=== PATIENT | male | born 1960 | race Caucasian/White ===

== ENCOUNTER 2018-05-29 17:00 | Outpatient (RCR) | payer OTHER, BC, SELFPAY | END 2018-06-07 14:32 | disposition home or self-care (01) | LOC: PT 17:00 | PROVIDERS: Visit Provider Orthopaedic Surgery Adult Reconstructive Orthopaedic Surgery | DX: M50.30 Other cervical disc degeneration, unspecified cervical region (principal); M75.111 Incomplete rotator cuff tear or rupture of right shoulder, not specified as traumatic | CPT/HCPCS: 97010; 97012; 97014; 97035; 97110; 97140; 97163; G0283 ==

== ENCOUNTER 2020-04-22 14:03 | Emergency (ER) | payer BC, SELFPAY ==
[2020-04-22 14:42] VITALS: PULSE 79; RESP 18; O2SAT 96; BMI 50.8
[2020-04-22 14:51] VITALS: BP 140/80
--- NOTE | 2020-04-22 15:05 | HMH.EDUTC ---
[facility] [place] Impression: Viral syndrome Disposition: Home, Self-Care Condition on Discharge: Good Instructions: DI for Viral Syndrome, Preventing the Spread of Coronavirus Discharge Instructions Additional Instructions: Drink plenty of fluids. Take tylenol or ibuprofen for pain or fever. Take the medications as directed. Follow up with your regular doctor. GO TO THE ER FOR ANY WORSENING SYMPTOMS FOLLOW THE DIRECTIONS ON THE COVID-19 HAND OUT THAT WE GAVE YOU REGARDING SELF-ISOLATION UNTIL YOU KNOW YOUR COVID-19 RESULTS Prescriptions: Ondansetron [Zofran 4mg ODT] 4 mg PO Q8HP PRN #20 tab.rapdis PRN Reason: Nausea Transmission Status: Received by [id number] Azithromycin [Z-Alistair 250mg Tab*] 250 mg PO UD DOSE PK #6 tab Transmission Status: Received by [id number] Referrals: Crissy Baker [Primary Care Provider] - Forms: Work/School Release Time of Disposition: 15:17 Medical Decision Making - Medical Records Medical records reviewed: No: I reviewed the patient's medical records. - Glenn Inquiry Pt receiving controlled substance: No Vital Signs: 04/22/20 14:42 04/22/20 14:51 04/22/20 15:14 Temperature 99.6 F Temperature Source Oral Pulse Rate Pulse Rate [Radial] 79 Respiratory Rate 18 Blood Pressure Blood Pressure [Right Arm] 140/80 Blood Pressure Mean [Right Arm] 100 Blood Pressure Source Blood Pressure Position 02 Sat by Pulse Oximetry 96 Oxygen Delivery Method Room Air 04/22/20 15:26 Temperature 99.6 F Temperature Source Oral Pulse Rate 79 Pulse Rate [Radial] Respiratory Rate 18 Blood Pressure 140/80 Blood Pressure [Right Arm] Blood Pressure Mean [Right Arm] Blood Pressure Source Automatic Cuff Blood Pressure Position Sitting 02 Sat by Pulse Oximetry Oxygen Delivery Method Room Air - Lab Data Lab results reviewed: Yes: I reviewed the patient's lab results. [facility] [place] - General Stated complaint: fever, sore throat cough head a weakness Time Seen by Provider: 04/22/20 14:55 Mode of Arrival: Ambulatory Source of Information: Patient Limitations: No Limitations Description of Symptoms (Recalled from Triage Doc. by RN): Needs covid testing. States he has a fever, chills, cough, joint pain HEENT Symptoms (Recalled from RN notes): Yes Resp Symptoms (Recalled from RN notes): No Skin Symptoms (Recalled from RN notes): No MS Symptoms (Recalled from RN notes): Yes Functional Status (Recalled from RN notes): wnl - History of Present Illness Provider Complaint: He states that he began having body aches and fever up to 100.6 since this morning. He denies any known exposure to covid-19. He denies any shortness of breath. He does have a dry cough. - Related Data Previous Rx's Medication Instructions Recorded Azithromycin [Z-Alistair 250mg Tab*] 250 mg PO UD DOSE PK #6 tab 04/22/20 Ondansetron [Zofran 4mg ODT] 4 mg PO Q8HP PRN #20 tab.rapdis 04/22/20 Allergies Allergy/AdvReac Type Severity Reaction Status Date / Time No Known Allergies Allergy Unverified 07/11/17 14:37 - Worker's Comp Is this a Worker's Comp case?: No [facility] History - Hepatitis A Screen Drug use history?: No High risk sexual behaviors?: No History of sexually transmitted infection?: No Currently employed?: No Childcare worker?: No Do you have indoor plumbing?: Yes Do you have electricity?: Yes Attestation statement:: This patient has been screened for Hepatitis A risk factors. I have reviewed the patient's past medical history: Yes - Social History Alcohol Intake: never Occupational Status: employed ROS Obtained: Yes All systems reviewed & no additional complaints - Constitutional Constitutional: Reports chills, Denies fever(s), Reports poor appetite, Reports malaise - Eyes Eyes: Denies eye discharge - ENT Ears, Nose, Mouth, and Throat: Reports as per HPI - Cardiovascular Cardiovascular: Denies
[2020-04-22 15:14] VITALS: TEMP 37.6
[2020-04-22 15:26] VITALS: BP 140/80; PULSE 79; RESP 18; TEMP 37.6; O2SAT 96
== END 2020-04-22 15:29 | disposition home or self-care (01) ==
PROVIDERS: Emergency Provider Nurse Practitioner Family; PCP Physician Assistant
DX: U07.1 COVID-19 (principal)
CPT/HCPCS: 99202; U0003

== ENCOUNTER 2020-05-07 01:28 | Inpatient (IN) | payer BC, SELFPAY ==
[2020-05-07] VITALS (15 sets, daily range): BP systolic 115–151; BP diastolic 53–85; PULSE 50–116; RESP 16–19; TEMP 36.4–36.9; O2SAT 90–97; BMI 35.2; BMI 36.9
--- NOTE | 2020-05-07 01:56 | XR_ITS ---
PROCEDURE: XR CHEST 2V CLINICAL HISTORY: Cough with right rib pain COMPARISON: CR CXR CHEST(2 VIEWS-NOT PORTABLE) from 01/06/[address] ANGIO CHEST from 05/07/2020 FINDINGS: The cardiomediastinal silhouette and pulmonary vascularity are within normal limits. There is diffuse bilateral small multifocal areas of infiltrate. No obvious effusion. Bone plate is present in the lower cervical spine. IMPRESSION: Diffuse bilateral multifocal small areas of infiltrate most prominent in the right lung base laterally consistent with pneumonia. Consider atypical pneumonia, viral pneumonia/Covid 19 pneumonia Dictated by: Jimmy Frias MD 05/07/2020 05:26 Jimmy Frias MD in [place] 05/07/2020 05:26
--- NOTE | 2020-05-07 01:56 | CT_ITS ---
PROCEDURE: CT ANGIO CHEST CLINCIAL INDICATION: Right rib pain Chest pain with right rib pain, positive COVID 19 COMPARISON: No exams were available for comparison TECHNIQUE: IV Contrast: 70ML OPTIRAY 350 Axial images obtained with sagittal and coronal reformats. All CT scans at the facility use one or more dose reduction, viz: automated exposure control, ma/kV adjustment per patient size (including targeted exams where dose is matched to indication, i.e. head), or iterative reconstruction technique. FINDINGS: There are multiple focal filling defects in the bilateral pulmonary arteries involving the inter lobar segmental and subsegmental pulmonary artery branches consistent with acute pulmonary embolus. No bowing of the interventricular septum and no significant reflux into the inferior vena cava which does not appear enlarged. No evidence of aortic aneurysm or dissection. There is mild mediastinal adenopathy with nodes in the prevascular and precarinal region the. Mildly prominent right hilar lymph node also present at 1.6 cm. Multifocal peripheral patchy irregular infiltrates and ground-glass opacities are present. These are present in both upper and lower lobes. Atelectatic changes are present in the lung bases. No significant effusion. There is ankylosis of the thoracic spine There is mild gynecomastia. IMPRESSION: 1. Extensive bilateral acute pulmonary emboli with large clot burden. 2. Multifocal pneumonia. Consider Covid 19 pneumonia. Multiple septic emboli also consideration. 3. Mild mediastinal adenopathy possibly reactive. Follow-up recommend Dictated by: Jimmy Frias MD 05/07/2020 06:13 Jimmy Frias MD in [place] 05/07/2020 06:13
[2020-05-07 02:04] LABS: Basophils # 0.1 K/mm3 (0-0.2); Basophils % 0.5 % (0.1-2.0); Eosinophils # 0.2 K/mm3 (0.0-0.4); Eosinophils % 1.7 % (0.1-12.0); Hematocrit 48.2 % (42.0-52.0); Hemoglobin 15.7 g/dL (14.1-18.0); Lymphocytes # 1.6 K/mm3 (0.7-4.5); Lymphocytes % 14.5 % (10-50); Mean Corpuscular HGB Conc 32.5 g/dL (31.8-35.4); Mean Corpuscular Hemoglobin 30.9 pg (27.0-31.2); Mean Platelet Volume 8.1 fl (7.4-10.4); Monocytes # 0.8 K/mm3 (0.1-1.0); Monocytes % 6.9 % (1.7-9.3); Neutrophils # 8.2 K/mm3 (1.8-7.8); Neutrophils % 76.3 % (37.0-80.0); Platelet Count 370 K/mm3 (142-424); Red Blood Count 5.07 M/mm3 (4.60-6.20); White Blood Count 10.8 K/mm3 (4.8-10.8)
[2020-05-07 02:11] LABS: Alanine Aminotransferase 57 U/L (12-78); Albumin Level 3.8 g/dl (3.5-5.0); Alkaline Phosphatase 77 U/L (38-126); Anion Gap 13.9 mEq/L (5-15); Aspartate Amino Transferase 50 U/L (17-59); Bilirubin,Total 0.9 mg/dl (0.2-1.3); Blood Urea Nitrogen 18 mg/dl (9-20); Calcium 8.8 mg/dl (8.4-10.2); Carbon Dioxide 26 mmol/L (22.0-30.0); Chloride 101 mmol/L (98-107); Creatinine Clearance Estimated 87 mL/min (50-200); Estimated Glomerular Filt Rate 56 ml/min (>60); GFR (African American) 68 ML/MIN (>60); Globulin 3.8 g/dL (1.3-3.2); Glucose 118 mg/dl (74-100); Potassium 3.9 mmoL/L (3.5-5.1); Sodium 137 mmol/L (136-145); Total Protein,Serum 7.6 g/dl (6.3-8.2)
[2020-05-07 02:48] LABS: Erythrocyte Sedimentation Rate 20 mm/hr (0-20)
--- NOTE | 2020-05-07 03:20 | PC.NURSE ---
V-rad speaking with Dr Pulliam with CT results
--- NOTE | 2020-05-07 03:32 | HMH.EDGENADL ---
ED Disposition Clinical Impression: Pulmonary embolism associated with COVID-19 Disposition: Admitted As Inpatient Condition on Discharge: Serious Referrals: Crissy Baker [Primary Care Provider] - - Critical Care Critical Care Time: No Attestation: On 05/07/20, the high probability of a clinically significant, sudden or life threatening deterioration of the following system(s) required my full and direct attention, intervention and personal management. The time I documented below is in addition to time spent performing reported procedures but includes the following listed in this critical care notation. Medical Decision Making - Medical Records Medical records reviewed: Yes: I reviewed the patient's medical records. - Glenn Inquiry Pt receiving controlled substance: No Vital Signs: 05/07/20 01:42 05/07/20 03:36 Temperature 98.4 F Temperature Source Oral Pulse Rate [Right] 116 H 81 Respiratory Rate 18 18 Blood Pressure [Right Arm] 125/74 145/84 H Blood Pressure Mean [Right Arm] 91 104 Blood Pressure Source [Right Arm] Automatic Cuff Blood Pressure Position [Right Arm] Sitting 02 Sat by Pulse Oximetry 95 91 L Oxygen Delivery Method Room Air Room Air - Lab Data Lab results reviewed: Yes: I reviewed the patient's lab results. Lab Results 05/07/20 01:55: WBC 10.8, RBC 5.07, Hgb 15.7, Hct 48.2, MCV 95.0 H, MCH 30.9, MCHC 32.5, RDW 13.0, Plt Count 370, MPV 8.1, Neut % (Auto) 76.3, Lymph % (Auto) 14.5, [place] % (Auto) 6.9, Eos % (Auto) 1.7, Baso % (Auto) 0.5, Neut # (Auto) 8.2 H, Lymph # (Auto) 1.6, [place] # (Auto) 0.8, Eos # (Auto) 0.2, Baso # (Auto) 0.1, ESR 20 05/07/20 01:55: Sodium 137, Potassium 3.9, Chloride 101, Carbon Dioxide 26, Anion Gap 13.9, BUN 18, Creatinine 1.30 H, Estimated Creat Clear 87, Estimated GFR 56 L, Est GFR ( Amer) 68, Glucose 118 H, Calcium 8.8, Total Bilirubin 0.9, AST 50, ALT 57, Alkaline Phosphatase 77, C-Reactive Protein 52.0 H, Total Protein 7.6, Albumin 3.8, Globulin 3.8 H, Albumin/Globulin Ratio 1.0 L 05/07/20 01:55: SARS-CoV-2 IgG Ab (Rapid) Positive A, SARS-CoV-2 IgM Ab (Rapid) Positive A Result diagrams: 05/07/20 01:55 05/07/20 01:55 Orders (Tests/Meds): ED MEDICATIONS Generic Name Dose Route Start Last Admin Trade Name Freq PRN Reason Stop Dose Admin Sodium Chloride 1,000 mls @ 999 mls/hr 05/07/20 02:00 05/07/20 02:02 Sod Chlor 0.9% 1000ml Bag IV 05/07/20 03:00 999 mls/hr .Q1H1M CHRIST Administration Sodium Chloride 1,000 mls @ 999 mls/hr 05/07/20 03:45 05/07/20 03:36 Sod Chlor 0.9% 1000ml Bag IV 05/07/20 04:45 999 mls/hr .Q1H1M CHRIST Administration Discontinued Medications Generic Name Dose Route Start Last Admin Trade Name Freq PRN Reason Stop Dose Admin Enoxaparin Sodium 100 mg 05/07/20 03:40 05/07/20 03:45 Enoxaparin 100mg/Ml Syringe SQ 05/07/20 03:41 100 mg ONCE ONE Administration Ioversol 70 ml 05/07/20 03:07 05/07/20 03:08 Ioversol-350 (74%) 100ml Vial IV 05/07/20 03:08 70 ml ONCE ONE Administration Protocol Ketorolac Tromethamine 30 mg 05/07/20 01:59 05/07/20 02:01 Ketorolac 30mg/Ml Vial IV 05/07/20 02:00 30 mg ONCE ONE Administration Methylprednisolone Sodium Succinate 125 mg 05/07/20 02:00 05/07/20 02:01 Methylprednisolone Sod Succ 125mg Vial IV 05/07/20 02:01 125 mg ONCE ONE Administration Morphine Sulfate 4 mg 05/07/20 03:42 05/07/20 03:45 Morphine 4mg/Ml Syringe IV 05/07/20 03:43 4 mg ONCE ONE Administration Ondansetron HCl 4 mg 05/07/20 03:42 05/07/20 03:45 Ondansetron 4mg/2ml Vial IV 05/07/20 03:43 4 mg ONCE ONE Administration Sodium Chloride 40 ml 05/07/20 03:07 05/07/20 03:08 0.9 % Sodium Chloride 50 Ml Vial IV 05/07/20 03:08 40 ml ONCE ONE Administration Sodium Chloride 10 ml 05/07/20 03:07 05/07/20 03:08 Sodium Chloride 0.9% 10ml Syr (Rad Only) IV 05/07/20 03:08 10 ml ONCE ONE Administration ORDERS Catego
--- NOTE | 2020-05-07 03:32 | PC.NURSE ---
Dr Pulliam speaking with Dr Jeffrey with pt results
--- NOTE | 2020-05-07 03:41 | PC.NURSE ---
Lovenox dose confirmed by Melvin in Pharmacy
--- NOTE | 2020-05-07 03:46 | ECG_ITS ---
APPROVED REPORT Exam: Resting ECG HR:92 bpm ECG Measurements Heart Rate 92 AXES IA 144 P 52 QRSd 86 QRS 48 QT 378 T 47 QTc 467 Conclusion Normal sinus rhythm Nonspecific T wave abnormality Prolonged QT Abnormal ECG Electronically signed by : Jv Dowling, 05/10/2020 09:45:20
[2020-05-07 03:48] LABS: Adenovirus,PCR Not Detected (NotDetected); Bordetella Pertussis Not Detected (NotDetected); Chlamydophila Pneumoniae, PCR Not Detected (NotDetected); Coronavirus 229E Not Detected (NotDetected); Coronavirus NL63 Not Detected (NotDetected); Coronavirus OC43 Not Detected (NotDetected); Coronovirus HKU1,PCR Not Detected (NotDetected); Human Metapneumovirus Not Detected (NotDetected); Influenza A, PCR Not Detected (NotDetected); Influenza AH1, 2009 Not Detected (NotDetected); Influenza AH1, PCR Not Detected (NotDetected); Influenza AH3,PCR Not Detected (NotDetected); Influenza B, PCR Not Detected (NotDetected); Mycoplasma Pneumoniae, PCR Not Detected (NotDetected); Parainfluenza 1, PCR Not Detected (NotDetected); Parainfluenza 2, PCR Not Detected (NotDetected); Parainfluenza 3, PCR Not Detected (NotDetected); Parainfluenza 4, PCR Not Detected (NotDetected); Respiratory Syncytial Virus Not Detected (NotDetected); Rhinovirus/Enterovirus Not Detected (NotDetected)
[2020-05-07 03:49] LABS: Coronavirus 19 IgG Antibody Positive (Negative); Coronavirus 19 IgM Antibody Positive (Negative)
[2020-05-07 04:17] LABS: INR 1.13 (0.9-1.1); Prothrombin Time 12.4 seconds (9.4-11.8)
[2020-05-07 04:18] LABS: Activated Partial Thrombo Time 26.4 seconds (23.6-34.0); Troponin I < 0.01 ng/ml (0.00-0.034)
[2020-05-07 05:24] LABS: Coronavirus 19, PCR Detected (NotDetected)
--- NOTE | 2020-05-07 05:55 | PC.NURSE ---
Pt set password to [facility]
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
--- NOTE | 2020-05-07 08:00 | CA_ITS ---
APPROVED REPORT EXAM: Comprehensive 2D, Doppler, and color-flow Echocardiogram Bonding Machine Setter: Hilda Martinez RT(R) Ht: 5 ft 7 in Wt: 235lbs BSA: 2.17 BP: 140/70 mmHg Indications: SOA COVID 2D Dimensions LVOT 1.90 cm (M/F) 1.5-2.5 M-Mode Dimensions RVDd 2.33 cm (0.9-2.6) LA Diam 3.67 cm (1.9-4.0) LVDd 5.63 cm (3.5-5.7) Ao Diam 2.70 cm (2.0-3.7) LVDs 4.31 cm (3.5-5.7) IVSd 0.85 cm (0.6-1.1) PWd 0.76 cm (0.6-1.1) EF (Teich) 46.30% FS 23.40% EDV (Teich) 155.60 mL ESV (Teich) 83.50 mL LV Diastology E Decel Time 160.00 (160-240 msec) E/A Ratio 0.9 MED E' 6.40 (< 7 cm/sec) E'/MED E' Ratio 10.25 (>14) LAT E' 8.40 (<10 cm/sec) E/LAT E' Ratio 7.81 (>14) Mitral Valve MV E Max Marcos. 66.00 (40-130 cm/s) MV A Velocity 74.00 (40-130 cm/s) E/A Ratio 0.89 MV Decel. Time 160.00 (160-240 ms) MV PHT 47.00 ms Left Ventricle Left atrium is qualitatively mildly enlarged, left ventricle is normal size, there is no concentric left ventricular hypertrophy, visually estimated ejection fraction 55% with no regional wall motion abnormality, grade 1 diastolic dysfunction seen without tissue Doppler evidence of raise left atrial pressure. Right Ventricle Right atrium and right ventricle are normal size and contractility. Aortic Valve Aortic valve is grossly normal, there is no aortic stenosis or aortic insufficiency. Mitral Valve Mitral valve is grossly normal, there is trace mitral regurgitation. Tricuspid Valve Tricuspid valve is grossly normal, there is trace tricuspid regurgitation, tricuspid regurgitation jet velocity is inadequate for calculation of the right ventricular systolic pressure. Pulmonic Valve Pulmonic valve is poorly visualized. Great Vessels Aortic root is normal size. Pericardium No significant pericardial effusion noted. Conclusion 1. Mildly enlarged left atrium, normal left ventricular size, visually estimated ejection fraction 55% with no regional wall motion abnormality, grade 1 diastolic dysfunction seen without tissue Doppler evidence of raise left atrial pressure. 2. Trace mitral and tricuspid regurgitation. 3. No significant pericardial effusion noted. Electronically signed by : Slava Cook, 05/07/2020 15:21:24
--- NOTE | 2020-05-07 09:37 | HMH.PHAVTE ---
[facility] Pharmacy VTE Monitoring - Patient Demographics Admission date: 05/07/20 Report Date: 05/07/20 Time: 09:37 Allergies/Adverse Reactions: Patient Allergies acetaminophen [From Tylenol] Allergy (Verified 05/07/20 06:23) Height: 1.7 m Weight: 106.736 kg Patient Problems: Current Active Problems Pulmonary embolism associated with COVID-19 (Acute) - VTE Risk Labs: VTE Related Lab Results Hgb 15.7 g/dL (14.1-18.0) 05/07/20 01:55 Hct 48.2 % (42.0-52.0) 05/07/20 01:55 Plt Count 370 K/mm3 (142-424) 05/07/20 01:55 PT 12.4 seconds (9.4-11.8) H 05/07/20 01:55 INR 1.13 (0.9-1.1) H 05/07/20 01:55 APTT 26.4 seconds (23.6-34.0) 05/07/20 01:55 BUN 18 mg/dl (9-20) 05/07/20 01:55 Creatinine 1.30 mg/dl (0.66-1.25) H 05/07/20 01:55 Estimated Creat Clear 87 mL/min (50-200) 05/07/20 01:55 Was VTE Risk Assessment Performed: Yes VTE Score: 4 VTE Risk Level: Low Risk Clinical Trial Participant: No - Prophylaxis VTE Prophylaxis Ordered?: Yes Types of VTE Prophylaxis: TEDS Knee High
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
--- NOTE | 2020-05-07 14:21 | PC.NURSE ---
Addendum entered by Natalia Delgado RN 05/07/20 18:37: Pt's HR drops into the 40'-50's when asleep, he is asymptomatic on assessment. Original Note: Pt is alert and oriented x4. Lungs were diminished. O2 has remained in the upper 90's on 2L NC. He reports rt sided rib pain with cough. Scheduled aleve administered with relief noted on reassessment. Cough is intermittent and non productive. Pt unable to provide a sputum sample as of yet. He has ambulated to the bathroom w/1 assist and tolerated well. Last BM on 05/06. NSR on telemetry. Consent obtained for remdesivir treatment, it is signed and on pts chart. IV to RAC is patent and infusing NS @ 100mls/hr. No complaints verbalized. Appetite is good. Will continue to monitor.
--- NOTE | 2020-05-07 16:13 | PC.NURSE ---
Per Dr Jeffrey give 100mg lovenox SQ @ [id number]
[2020-05-08] VITALS (7 sets, daily range): BP systolic 132–170; BP diastolic 67–90; PULSE 47–69; RESP 16–18; TEMP 36.4–36.9; O2SAT 93–97; BMI 36.3
--- NOTE | 2020-05-08 05:38 | PC.NURSE ---
shift summary. patient has rested well throughout shift. pulses palpable and regular. heart rate ranged from 40s to 60s. systolic blood pressure remained greater than 100. patient has denied dizziness or vision changes. breath sounds clear throughout all chua, remains on 2 l nc with sats 95-99%. room air sat of 90%. patient has denied nausea, vomiting, diarrhea or pain. urine output clear and yellow.
[2020-05-08 06:28] LABS: Basophils # 0.1 K/mm3 (0-0.2); Basophils % 0.4 % (0.1-2.0); Eosinophils % 0.1 % (0.1-12.0); Hemoglobin 13.5 g/dL (14.1-18.0); Lymphocytes # 1.6 K/mm3 (0.7-4.5); Lymphocytes % 9.7 % (10-50); Mean Corpuscular HGB Conc 30.8 g/dL (31.8-35.4); Mean Corpuscular Hemoglobin 29.6 pg (27.0-31.2); Mean Corpuscular Volume 96.2 fl (80-94); Monocytes # 0.9 K/mm3 (0.1-1.0); Monocytes % 5.7 % (1.7-9.3); Neutrophils # 13.5 K/mm3 (1.8-7.8); Neutrophils % 84.2 % (37.0-80.0); Platelet Count 352 K/mm3 (142-424); Red Blood Count 4.57 M/mm3 (4.60-6.20); Red Cell Distribution Width 13.4 % (11.5-17.5)
[2020-05-08 06:41] LABS: Chloride 106 mmol/L (98-107); Sodium 139 mmol/L (136-145)
[2020-05-08 06:42] LABS: Potassium 4.4 mmoL/L (3.5-5.1)
[2020-05-08 06:44] LABS: Alanine Aminotransferase 39 U/L (12-78); Albumin/Globulin Ratio 0.9 (1.1-1.8); Alkaline Phosphatase 51 U/L (38-126); Anion Gap 11.4 mEq/L (5-15); Aspartate Amino Transferase 36 U/L (17-59); Bilirubin,Total 0.5 mg/dl (0.2-1.3); Blood Urea Nitrogen 21 mg/dl (9-20); Calcium 8.3 mg/dl (8.4-10.2); Carbon Dioxide 26 mmol/L (22.0-30.0); Creatinine Clearance Estimated 117 mL/min (50-200); Estimated Glomerular Filt Rate 76 ml/min (>60); GFR (African American) 92 ML/MIN (>60); Globulin 3.3 g/dL (1.3-3.2); Glucose 119 mg/dl (74-100); Total Protein,Serum 6.3 g/dl (6.3-8.2)
[2020-05-08 06:57] LABS: MANUAL DIFFERENTIAL MANUAL DIFFERENTIAL (MANUAL DIFF)
[2020-05-08 08:36] LABS: Lymphocytes % 16 % (10-50); Monocytes % 3 % (2-9); Neutrophils % 80 % (42-76); Platelet Estimate Normal; RBC Morphology Normal; Total Cells Counted 100
--- NOTE | 2020-05-08 09:00 | HMH.ACPN2 ---
Internal Medicine - PN: Subj *Date: 05/08/20 *Time: 09:00 Interval history: Patient feels better this morning, no fever. He is anxious to go home. Exam Vital signs and Labs for Last 24 Hours: Temp Pulse Resp BP Pulse Ox 97.9 F 63 16 138/78 97 05/08/20 04:00 05/08/20 04:00 05/08/20 04:00 05/08/20 04:00 05/08/20 04:00 Laboratory Results - last 24 hr 05/08/20 05:15: WBC 16.0 H D, RBC 4.57 L, Hgb 13.5 L, Hct 44.0, MCV 96.2 H, MCH 29.6, MCHC 30.8 L, RDW 13.4, Plt Count 352, MPV 9.0, Neut % (Auto) 84.2 H, Lymph % (Auto) 9.7 L, [place] % (Auto) 5.7, Eos % (Auto) 0.1, Baso % (Auto) 0.4, Neut # (Auto) 13.5 H, Lymph # (Auto) 1.6, [place] # (Auto) 0.9, Eos # (Auto) 0.0, Baso # (Auto) 0.1, Total Counted 100, Neutrophils % (Manual) 80 H, Band Neutrophils % 1.0, Lymphocytes % (Manual) 16, Monocytes % (Manual) 3, Platelet Estimate Normal, RBC Morphology Normal 05/08/20 05:15: Sodium 139, Potassium 4.4, Chloride 106, Carbon Dioxide 26, Anion Gap 11.4, BUN 21 H, Creatinine 1.00 D, Estimated Creat Clear 117, Estimated GFR 76, Est GFR ( Amer) 92 D, Glucose 119 H, Calcium 8.3 L, Total Bilirubin 0.5, AST 36 D, ALT 39 D, Alkaline Phosphatase 51, Total Protein 6.3, Albumin 3.0 L D, Globulin 3.3 H, Albumin/Globulin Ratio 0.9 L Vital Signs - 24 hr 05/07/20 12:00 05/07/20 16:00 05/07/20 18:27 Temperature 97.6 F Pulse Rate 60 50 L Pulse Rate [Apical] 68 51 L Pulse Rate [Right] Respiratory Rate 18 19 Blood Pressure [Right Arm] 151/85 H 133/74 02 Sat by Pulse Oximetry 97 97 05/07/20 19:20 05/07/20 20:00 05/08/20 00:00 Temperature 97.8 F 98.0 F Pulse Rate Pulse Rate [Apical] 58 L 47 L Pulse Rate [Right] 58 L Respiratory Rate 18 18 Blood Pressure [Right Arm] 115/53 L 133/72 02 Sat by Pulse Oximetry 90 L 95 97 05/08/20 04:00 Temperature 97.9 F Pulse Rate Pulse Rate [Apical] 63 Pulse Rate [Right] Respiratory Rate 16 Blood Pressure [Right Arm] 138/78 02 Sat by Pulse Oximetry 97 I & O for Last 24 hours: Intake & Output 05/05/20 05/06/20 05/07/20 05/08/20 23:59 23:59 23:59 23:59 Intake Total 3744 / 3744 Output Total 1400 / 1400 Balance 2344 / 2344 Weight 235 lb 5 oz 231 lb 14.821 oz - Constitutional no acute distress - *Routine HEENT Exam Head: Present: normocephalic Eye: Present: EOMI ENT: Present: mucous membranes moist - *Routine Neck Exam Present: supple. Absent: lymphadenopathy - *Routine Respiratory Exam Present: CTA bilaterally (NC O2 in use) - *Routine Cardiovascular Exam Present: RRR - *Routine Abdominal Exam Present: soft, normoactive bowel sounds. Absent: tenderness - *Routine Extremities Exam Absent: cyanosis, clubbing, edema - *Routine Skin Exam Present: warm. Absent: rash - *Routine Neurological Exam Present: alert, oriented X3 Assessment and Plan (1) Pulmonary embolism associated with COVID-19 Status: Acute Category: Medical Code(s): U07.1 - COVID-19; I26.99 - Other pulmonary embolism without acute cor pulmonale (2) COVID-19 Status: Acute Category: Medical Code(s): U07.1 - COVID-19 (3) Viral syndrome Status: Acute Category: Medical Code(s): B34.9 - Viral infection, unspecified - Assessment and plan all Dx Assessment and Plan for all problems:: Pt has improved, attempt to wean supplemental O2 today, saline lock IVF.
--- NOTE | 2020-05-08 12:05 | HMH.PULMPN ---
Internal Medicine - PN: Subj *Date: 05/08/20 *Time: 12:05 Interval history: No acute respiratory events overnight, patient oxygen requirement improved, this morning on room air saturating 96%-97% Exam Vital signs and Labs for Last 24 Hours: Temp Pulse Resp BP Pulse Ox 98.0 F 67 16 140/74 96 05/08/20 08:00 05/08/20 08:00 05/08/20 08:00 05/08/20 08:00 05/08/20 08:00 Laboratory Results - last 24 hr 05/08/20 05:15: WBC 16.0 H D, RBC 4.57 L, Hgb 13.5 L, Hct 44.0, MCV 96.2 H, MCH 29.6, MCHC 30.8 L, RDW 13.4, Plt Count 352, MPV 9.0, Neut % (Auto) 84.2 H, Lymph % (Auto) 9.7 L, [place] % (Auto) 5.7, Eos % (Auto) 0.1, Baso % (Auto) 0.4, Neut # (Auto) 13.5 H, Lymph # (Auto) 1.6, [place] # (Auto) 0.9, Eos # (Auto) 0.0, Baso # (Auto) 0.1, Total Counted 100, Neutrophils % (Manual) 80 H, Band Neutrophils % 1.0, Lymphocytes % (Manual) 16, Monocytes % (Manual) 3, Platelet Estimate Normal, RBC Morphology Normal 05/08/20 05:15: Sodium 139, Potassium 4.4, Chloride 106, Carbon Dioxide 26, Anion Gap 11.4, BUN 21 H, Creatinine 1.00 D, Estimated Creat Clear 117, Estimated GFR 76, Est GFR ( Amer) 92 D, Glucose 119 H, Calcium 8.3 L, Total Bilirubin 0.5, AST 36 D, ALT 39 D, Alkaline Phosphatase 51, Total Protein 6.3, Albumin 3.0 L D, Globulin 3.3 H, Albumin/Globulin Ratio 0.9 L I & O for Last 24 hours: Intake & Output 05/05/20 05/06/20 05/07/20 05/08/20 23:59 23:59 23:59 23:59 Intake Total 3744 / 3744 Output Total 1400 / 1400 700 / 700 Balance 2344 / 2344 -700 / -700 Weight 235 lb 5 oz 231 lb 14.821 oz - *Routine HEENT Exam Head: Present: normocephalic, atraumatic - *Routine Neck Exam Absent: lymphadenopathy, thyromegaly - *Routine Respiratory Exam Absent: accessory muscle use, patient mechanically ventilated Comments: Bilateral coarse breath sounds - *Routine Cardiovascular Exam Present: Normal S1, Normal S2 - *Routine Abdominal Exam Present: soft, normoactive bowel sounds. Absent: tenderness, distended, rebound - *Routine Extremities Exam Absent: cyanosis, clubbing, edema Assessment and Plan (1) Pulmonary embolism associated with COVID-19 Status: Acute Category: Medical Code(s): U07.1 - COVID-19; I26.99 - Other pulmonary embolism without acute cor pulmonale (2) COVID-19 Status: Acute Category: Medical Code(s): U07.1 - COVID-19 (3) Viral syndrome Status: Acute Category: Medical Code(s): B34.9 - Viral infection, unspecified - Assessment and plan all Dx Assessment and Plan for all problems:: #Acute hypoxic respiratory failure: #Bilateral segmental pulmonary embolism - Provoked: #COVID-19 pneumonia: #Community-acquired pneumonia 60-year-old relatively healthy never smoker with recent COVID-19 treatment April 22 presented with 10-day history of worsening cough fevers productive phlegm and pleuritic chest pain and was found to have recurrent COVID-19 infection along with bilateral segmental PE. Troponin within normal limits. Patient hemodynamically stable. PE likely provoked from COVID-19 infection. 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 Age-appropriate screenings up-to-date. Skin cancer 3 years ago that was removed. Respiratory viral PCR negative except for COVID-19 Echocardiogram by social media editor did not reported have any evidence of valvular vegetations. No evidence of right heart strain Plan: -Continue anticoagulation, can switch to apixaban or other DOAC's on discharge -Started on ceftriaxone and azithromycin this morning, continue community-acquired pneumonia for x 5 days -Obtain sputum culture -Continue dexamethasone and remdesavir for COVID-19 pneumonia. -Continue oxygen supplementation if needed to maintain nasal cannula greater than 94% -Follow in the pulmonary clinic, 4 weeks after discharge with full PFTs and 6-minute walk test #Pb yu for involving pulmonary in this patie
--- NOTE | 2020-05-08 16:03 | PC.NURSE ---
PT IS SITTING UP IN BED TALKING ON THE PHONE AT THIS TIME. PT HAS MAINTAINED AN O2 SATURATION 92-95% ON RA T/O THE SHIFT. PT HAS TOLERATED AMBULATING AROUND THE ROOM. APPETITE HAS BEEN FAIR. PT IS BEEN DRINKING WELL AND HAS URINATED SEVERAL TIMES THIS SHIFT. ALERT AND ORIENTED X4. VSS. LUNG SOUNDS DIMINISHED. ABDOMEN SOFT/NON TENDER WITH ACTIVE BOWEL SOUNDS. WILL CONTINUE TO MONITOR.
[2020-05-09] VITALS: BP 160/74; PULSE 63; RESP 20; TEMP 36.8; O2SAT 96
--- NOTE | 2020-05-09 03:43 | PC.NURSE ---
patient has had some issues with anxiety throughout shift. voiced concerns regarding going home, blood thinners, going back to work to soon and end up getting sick again as well as having to quarantine after discharge. allowed patient to voice concerns, assured patient all discharge instructions would be made clear with him prior to discharge. breath sounds have been diminished throughout all chua, sats have remained greater than 94% on r/a. respiratory rate under 20. no respiratory distress noted. pulses palpable and regular with rates in the 50s and 60s. appetite remains poor, bowel sounds active x 4 quadrants. clear yellow urine.
[2020-05-09 04:00] VITALS: BP 156/75; PULSE 49; RESP 16; TEMP 36.8; O2SAT 94
[2020-05-09 05:00] VITALS: BMI 38.0
[2020-05-09 06:28] LABS: Basophils % 0.3 % (0.1-2.0); Eosinophils % 0.2 % (0.1-12.0); Hematocrit 41.2 % (42.0-52.0); Hemoglobin 12.8 g/dL (14.1-18.0); Lymphocytes # 1.9 K/mm3 (0.7-4.5); Lymphocytes % 15.8 % (10-50); Mean Corpuscular Hemoglobin 30.1 pg (27.0-31.2); Mean Corpuscular Volume 97.2 fl (80-94); Mean Platelet Volume 8.8 fl (7.4-10.4); Monocytes # 0.7 K/mm3 (0.1-1.0); Monocytes % 5.9 % (1.7-9.3); Neutrophils # 9.4 K/mm3 (1.8-7.8); Neutrophils % 77.8 % (37.0-80.0); Platelet Count 334 K/mm3 (142-424); Red Blood Count 4.24 M/mm3 (4.60-6.20); White Blood Count 12.1 K/mm3 (4.8-10.8)
[2020-05-09 06:32] LABS: Chloride 106 mmol/L (98-107); Sodium 139 mmol/L (136-145)
[2020-05-09 06:33] LABS: Potassium 4.2 mmoL/L (3.5-5.1)
[2020-05-09 06:35] LABS: Alanine Aminotransferase 42 U/L (12-78); Albumin Level 2.8 g/dl (3.5-5.0); Albumin/Globulin Ratio 0.9 (1.1-1.8); Alkaline Phosphatase 52 U/L (38-126); Anion Gap 7.2 mEq/L (5-15); Aspartate Amino Transferase 37 U/L (17-59); Bilirubin,Total 0.4 mg/dl (0.2-1.3); Blood Urea Nitrogen 22 mg/dl (9-20); Carbon Dioxide 30 mmol/L (22.0-30.0); Creatinine Clearance Estimated 122 mL/min (50-200); Estimated Glomerular Filt Rate 76 ml/min (>60); GFR (African American) 92 ML/MIN (>60); Globulin 3.2 g/dL (1.3-3.2)
[2020-05-09 06:36] LABS: Glucose 98 mg/dl (74-100)
[2020-05-09 07:55] VITALS: BP 142/79; PULSE 60; RESP 18; TEMP 36.6; O2SAT 93
[2020-05-09 09:00] VITALS: PULSE 60; RESP 18; O2SAT 93
--- NOTE | 2020-05-09 09:22 | HMH.ACPN2 ---
Internal Medicine - PN: Subj *Date: 05/09/20 *Time: 09:59 Interval history: Patient feels better today, he has been off of supplemental oxygen for about 24 hours. Exam Vital signs and Labs for Last 24 Hours: Temp Pulse Resp BP Pulse Ox 97.9 F 60 18 142/79 H 93 L 05/09/20 07:55 05/09/20 07:55 05/09/20 07:55 05/09/20 07:55 05/09/20 07:55 Laboratory Results - last 24 hr 05/09/20 05:15: WBC 12.1 H, RBC 4.24 L, Hgb 12.8 L, Hct 41.2 L, MCV 97.2 H, MCH 30.1, MCHC 31.0 L, RDW 13.0, Plt Count 334, MPV 8.8, Neut % (Auto) 77.8, Lymph % (Auto) 15.8, [place] % (Auto) 5.9, Eos % (Auto) 0.2, Baso % (Auto) 0.3, Neut # (Auto) 9.4 H, Lymph # (Auto) 1.9, [place] # (Auto) 0.7, Eos # (Auto) 0.0, Baso # (Auto) 0.0 05/09/20 05:15: Sodium 139, Potassium 4.2, Chloride 106, Carbon Dioxide 30, Anion Gap 7.2, BUN 22 H, Creatinine 1.00, Estimated Creat Clear 122, Estimated GFR 76, Est GFR ( Amer) 92, Glucose 98, Calcium 8.0 L, Total Bilirubin 0.4, AST 37, ALT 42, Alkaline Phosphatase 52, Total Protein 6.0 L, Albumin 2.8 L, Globulin 3.2, Albumin/Globulin Ratio 0.9 L Vital Signs - 24 hr 05/08/20 12:00 05/08/20 16:00 05/08/20 19:59 Temperature 97.8 F 97.6 F 98.4 F Pulse Rate [Apical] Pulse Rate [Right] 66 69 65 Respiratory Rate 18 18 18 Blood Pressure [Right Arm] 141/72 H 132/67 170/90 H 02 Sat by Pulse Oximetry 93 L 95 95 05/08/20 20:00 05/09/20 00:00 05/09/20 04:00 Temperature 98.3 F 98.3 F Pulse Rate [Apical] 54 L Pulse Rate [Right] 63 49 L Respiratory Rate 20 16 Blood Pressure [Right Arm] 160/74 H 156/75 H 02 Sat by Pulse Oximetry 95 96 94 L 05/09/20 07:55 Temperature 97.9 F Pulse Rate [Apical] Pulse Rate [Right] 60 Respiratory Rate 18 Blood Pressure [Right Arm] 142/79 H 02 Sat by Pulse Oximetry 93 L I & O for Last 24 hours: Intake & Output 05/06/20 05/07/20 05/08/20 05/09/20 23:59 23:59 23:59 23:59 Intake Total 3744 / 3744 480 / 480 240 / 240 Output Total 1400 / 1400 900 / 900 250 / 250 Balance 2344 / 2344 -420 / -420 -10 / -10 Weight 235 lb 5 oz 231 lb 14.821 oz 242 lb - Constitutional no acute distress - *Routine HEENT Exam Head: Present: normocephalic Eye: Present: EOMI ENT: Present: mucous membranes moist - *Routine Neck Exam Present: supple. Absent: lymphadenopathy - *Routine Respiratory Exam Present: CTA bilaterally - *Routine Cardiovascular Exam Present: RRR - *Routine Abdominal Exam Present: soft, normoactive bowel sounds. Absent: tenderness - *Routine Extremities Exam Absent: cyanosis, clubbing, edema - *Routine Skin Exam Present: warm. Absent: rash - *Routine Neurological Exam Present: alert, oriented X3 Assessment and Plan (1) Pulmonary embolism associated with COVID-19 Status: Acute Category: Medical Code(s): U07.1 - COVID-19; I26.99 - Other pulmonary embolism without acute cor pulmonale (2) COVID-19 Status: Acute Category: Medical Code(s): U07.1 - COVID-19 (3) Viral syndrome Status: Acute Category: Medical Code(s): B34.9 - Viral infection, unspecified (4) CAP (community acquired pneumonia) Status: Acute Category: Medical Code(s): J18.9 - Pneumonia, unspecified organism - Assessment and plan all Dx Assessment and Plan for all problems:: OK for discharge home today, plan office f/u in 2 weeks.
--- NOTE | 2020-05-14 05:28 | HMH.DCSUM ---
General - General Admission date:: 05/07/20 Discharge date: 05/09/20 HPI HPI: Mr. Cleveland is an otherwise healthy 60yo male who sees Dr. Baker in [place] for primary care. He was diagnosed with COVID-19 on 04/22/2020 and relates unremarkable progression through the associated upper respiratory symptoms over the past two weeks including fever, cough, sore throat, shortness of breath, fatigue, generalized achiness. His symptoms were beginning to resolve although he was still quarantined. He described a coughing episode which resulted in severe right lateral rib pain and he subsequently presented to [facility] ED for further evaluation. Upon arrival, his CBC was WNL. Creatinine was mildly elevated at 1.3 with GFR of 56. His EKG showed sinus tachycardia with non-specific ST-T wave changes. CXR showed diffuse bilateral multifocal small areas of infiltrate most prominent in the right lung base laterally consistent with pneumonia, consider atypical/viral/Covid 19 pneumonia. Rapid SARS-COV-2 IgM was positive as was SARS-COV-2 PCR. CTA of the chest demonstrated bilateral pulmonary emboli with COVID changes. He was admitted to hospital service with pulmonology consult ordered. The following morning he was resting in bed. He had no complaint other than continued right lateral rib discomfort. He had an occasional non-productive cough. Hospital Course Hospital Course: Patient was given fluid boluses in the emergency room and started on Lovenox for PE's. He was seen by fibre cement moulder, Dr. Navarro, who initiated treatment for community-acquired pneumonia with Rocephin and Zithromax. Dexamethasone and remdesivir were also initiated for the Covid?19 pneumonia along with oxygen supplementation. Patient did begin to feel better. White blood cell count on 05/08 was 16,000. See data for other lab results. Patient at this point was anxious to go home. Plan was to wean him from his supplemental oxygen. On 05/09 patient had no acute respiratory events and tolerated room air for 24 hours. O2 saturations were 96 to 97%. On this date he was felt stable to be discharged home. On 05/09/2020 patient was discharged home in stable and satisfactory condition. He was to follow in the pulmonary clinic in 4 weeks after discharge with full PFT's and a 6 minute walk test and with Dr. Jeffrey on 05/22/2020 at 10 AM. Medications as per medication reconciliation sheet and to include continuing dexamethasone, Zithromax, cefdinir, ascorbic acid, vitamin D3 and Xarelto as well as zinc. Objective Vital signs: Temp Pulse Resp BP Pulse Ox 97.9 F 60 18 142/79 H 93 L 05/09/20 07:55 05/09/20 09:00 05/09/20 09:00 05/09/20 07:55 05/09/20 09:00 Narrative: Exam Vital signs and Labs for Last 24 Hours: Temp Pulse Resp BP Pulse Ox 97.9 F 60 18 142/79 H 93 L 05/09/20 07:55 05/09/20 07:55 05/09/20 07:55 05/09/20 07:55 05/09/20 07:55 Laboratory Results - last 24 hr 05/09/20 05:15: WBC 12.1 H, RBC 4.24 L, Hgb 12.8 L, Hct 41.2 L, MCV 97.2 H, MCH 30.1, MCHC 31.0 L, RDW 13.0, Plt Count 334, MPV 8.8, Neut % (Auto) 77.8, Lymph % (Auto) 15.8, [place] % (Auto) 5.9, Eos % (Auto) 0.2, Baso % (Auto) 0.3, Neut # (Auto) 9.4 H, Lymph # (Auto) 1.9, [place] # (Auto) 0.7, Eos # (Auto) 0.0, Baso # (Auto) 0.0 05/09/20 05:15: Sodium 139, Potassium 4.2, Chloride 106, Carbon Dioxide 30, Anion Gap 7.2, BUN 22 H, Creatinine 1.00, Estimated Creat Clear 122, Estimated GFR 76, Est GFR ( Amer) 92, Glucose 98, Calcium 8.0 L, Total Bilirubin 0.4, AST 37, ALT 42, Alkaline Phosphatase 52, Total Protein 6.0 L, Albumin 2.8 L, Globulin 3.2, Albumin/Globulin Ratio 0.9 L Vital Signs - 24 hr 05/08/20 12:00 05/08/20 16:00 05/08/20 19:59 Temperature 97.8 F 97.6 F 98.4 F Pulse Rate [Apical] Pulse Rate [Right] 66 69 65 Respiratory Rate 18 18 18 Blood Pressure [Right Arm] 141/72 H 132/67 170/90 H 02 Sat by Pulse Oximetry 93 L 95 95 05/08/20 20:00 05/09/20 00:00 05/09/20
== END 2020-05-09 11:45 | disposition home or self-care (01) | DRG 177 ==
LOC: ER 03:57 → ICU 06:03
PROVIDERS: Admitting Provider Family Medicine; Emergency Provider Emergency Medicine; PCP Physician Assistant; Visit Provider Family Medicine
DX: U07.1 COVID-19 (principal); I26.99 Other pulmonary embolism without acute cor pulmonale; J12.89 Other viral pneumonia; J96.01 Acute respiratory failure with hypoxia
CPT/HCPCS: 71046; 71275; 80053; 84484; 85007; 85025; 85610; 85651; 85730; 86140; 86328; 87581; 87633; 87798; 90686; 90732; 93005; 93306; 94761; 96365; 96366; 96372; 96375; 99284; J0456; J2405; Q9967; U0003

== ENCOUNTER → 2020-06-08 10:52 | Outpatient (CLI) | payer BC, SELFPAY ==
--- NOTE | 2020-06-08 10:57 | XR_ITS ---
PROCEDURE: XR CHEST 2V CLINICAL HISTORY: Pneumonia COMPARISON: CR CXR CHEST(2 VIEWS-NOT PORTABLE) from 01/06/2016 CR XR CHEST 2V from 05/07/[address] ANGIO CHEST from 05/07/2020 FINDINGS: The cardiomediastinal silhouette and pulmonary vascularity are within normal limits. There has been marked interval clearing of the diffuse pneumonia. There is some minimal residual infiltrate in the left perihilar region. No effusions. Degenerative changes thoracic spine IMPRESSION: Marked improvement in the diffuse bilateral pneumonia with some minimal residual infiltrate in the left perihilar region Dictated by: Jimmy Frias MD 06/08/2020 16:23 Jimmy Frias MD in [place] 06/08/2020 16:23
[2020-06-08 11:59] LABS: D-Dimer 0.58 ug/mL (0.15-8.0)
== END ==
PROVIDERS: PCP Physician Assistant; Visit Provider Internal Medicine Pulmonary Disease
DX: J44.9 Chronic obstructive pulmonary disease, unspecified (principal)
CPT/HCPCS: 36415; 71046; 85378

== ENCOUNTER → 2020-07-27 14:04 | Outpatient (CLI) | payer BC, SELFPAY ==
--- NOTE | 2020-07-27 15:20 | PC.NURSE ---
Completed PFT on Pt without incident. Albuterol 0.083% given per written protocol, Pt tolerated well.
== END ==
PROVIDERS: PCP Physician Assistant; Visit Provider Internal Medicine Pulmonary Disease
DX: R06.09 Other forms of dyspnea (principal); Z86.16 Personal history of COVID-19
CPT/HCPCS: 94060; 94726; 94729

== ENCOUNTER → 2020-09-07 09:50 | Outpatient (CLI) | payer BC, SELFPAY | PROVIDERS: PCP Family Medicine; Visit Provider Family Medicine | DX: R06.09 Other forms of dyspnea (principal) | CPT/HCPCS: 94618 ==

== ENCOUNTER 2020-12-03 12:35 | Outpatient (RCR) | payer BC, SELFPAY | END 2021-01-29 13:09 | disposition home or self-care (01) | LOC: PT 12:35 | PROVIDERS: Visit Provider Internal Medicine Pulmonary Disease | DX: R06.02 Shortness of breath (principal); Z86.16 Personal history of COVID-19 | CPT/HCPCS: 93798; G0237; G0238; G0239 ==

== ENCOUNTER → 2020-12-29 12:33 | Outpatient (CLI) | payer BC, SELFPAY ==
--- NOTE | 2020-12-29 12:36 | NM_ITS ---
PROCEDURE: NM PUL VENT AND PERFUSE CLINICAL INDICATION: eevated Dimer Shortness of breath, history of Covid19, elevated D-dimer COMPARISON: CR XR CHEST 2V from 12/29/2020 FINDINGS: Dose: 35.5 mCi technetium DTPA inhaled 8.4 mCi technetium MAA IV. No segmental perfusion or ventilation defects are evident. No mismatching defects. There is normal distribution of radiopharmaceutical in both the ventilation and perfusion images. IMPRESSION: Negative, no evidence pulmonary embolus. Dictated by: Jimmy Frias MD 12/29/2020 14:35 Jimmy Frias MD in [place] 12/29/2020 14:35
--- NOTE | 2020-12-29 13:29 | XR_ITS ---
PROCEDURE: XR CHEST 2V CLINICAL HISTORY: SOA, VQ SCAN TODAY Shortness of air, history of Covid19 COMPARISON: CR CXR CHEST(2 VIEWS-NOT PORTABLE) from 01/06/2016 CR XR CHEST 2V from 05/07/[address] ANGIO CHEST from 05/07/2020 CR XR CHEST 2V from 06/08/2020 FINDINGS: The cardiomediastinal silhouette and pulmonary vascularity are within normal limits. The lungs are clear without infiltrates, suspicious nodules, or pleural effusions. There is ankylosis of the thoracic spine. Bone plate is present in the lower cervical spine. IMPRESSION: No acute findings. Dictated by: Jimmy Frias MD 12/29/2020 14:36 Jimmy Frias MD in [place] 12/29/2020 14:36
--- NOTE | 2020-12-29 13:39 | HMH.ITSHM ---
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 []VITAMINS
== END ==
PROVIDERS: PCP Family Medicine; Visit Provider Internal Medicine Pulmonary Disease
DX: R06.00 Dyspnea, unspecified (principal); R79.89 Other specified abnormal findings of blood chemistry; Z86.16 Personal history of COVID-19
CPT/HCPCS: 71046; 78582; A9540; A9567

== ENCOUNTER → 2021-07-23 09:36 | Outpatient (CLI) | payer BC, SELFPAY ==
[2021-07-23 13:52] LABS: Alanine Aminotransferase 78 U/L (12-78); Albumin Level 4.2 g/dl (3.5-5.0); Albumin/Globulin Ratio 1.3 (1.1-1.8); Alkaline Phosphatase 82 U/L (38-126); Anion Gap 11.6 mEq/L (5-15); Aspartate Amino Transferase 77 U/L (17-59); Bilirubin,Total 0.6 mg/dl (0.2-1.3); Blood Urea Nitrogen 21 mg/dl (9-20); Calcium 9.2 mg/dl (8.4-10.2); Carbon Dioxide 30 mmol/L (22.0-30.0); Chloride 101 mmol/L (98-107); Estimated Glomerular Filt Rate 62 ml/min (>60); GFR (African American) 74 ML/MIN (>60); Globulin 3.3 g/dL (1.3-3.2); Glucose 150 mg/dl (74-100); Magnesium 1.6 mg/dl (1.6-2.3); Phosphorous 3.5 mg/dl (2.5-4.5); Potassium 4.6 mmoL/L (3.5-5.1); Sodium 138 mmol/L (136-145); Total Protein,Serum 7.5 g/dl (6.3-8.2)
[2021-07-23 14:03] LABS: Basophils # 0.1 K/mm3 (0-0.2); Basophils % 1.1 % (0.1-2.0); Eosinophils # 0.1 K/mm3 (0.0-0.4); Eosinophils % 2.1 % (0.1-12.0); Hematocrit 50.5 % (42.0-52.0); Hemoglobin 16.1 g/dL (14.1-18.0); Lymphocytes # 2.2 K/mm3 (0.7-4.5); Mean Corpuscular HGB Conc 31.9 g/dL (31.8-35.4); Mean Corpuscular Hemoglobin 31.5 pg (27.0-31.2); Mean Corpuscular Volume 98.8 fl (80-94); Mean Platelet Volume 9.2 fl (7.4-10.4); Monocytes # 0.4 K/mm3 (0.1-1.0); Neutrophils # 3.1 K/mm3 (1.8-7.8); Neutrophils % 52.9 % (37.0-80.0); Platelet Count 295 K/mm3 (142-424); Red Blood Count 5.11 M/mm3 (4.60-6.20); Red Cell Distribution Width 13.6 % (11.5-17.5); White Blood Count 5.9 K/mm3 (4.8-10.8)
[2021-07-23 14:08] LABS: 25-OH Vitamin D, Total 42.2 ng/mL (30-100)
[2021-07-23 14:23] LABS: Thyroid Stimulating Hormone 3.42 uIU/mL (0.465-4.68)
[2021-07-23 14:29] LABS: Erythrocyte Sedimentation Rate 15 mm/hr (0-20)
[2021-07-23 14:41] LABS: Vitamin B12 444 pg/mL (239-931)
== END ==
PROVIDERS: Visit Provider Family Medicine
DX: R53.82 Chronic fatigue, unspecified (principal); E66.9 Obesity, unspecified; Z68.41 Body mass index [BMI] 40.0-44.9, adult
CPT/HCPCS: 36415; 80053; 82306; 82607; 83735; 84100; 84443; 85025; 85651

== ENCOUNTER → 2021-07-26 09:49 | Outpatient (CLI) | payer BC, SELFPAY ==
[2021-07-26 09:53] LABS: Microscopic, Urine URINE MICROSCOPIC (MICROSCOPIC)
[2021-07-26 14:37] LABS: Appearance,Urine TURBID (Clear); Bilirubin,Urine Negative (Negative); Blood, Urine Negative (Negative); Color,Urine YELLOW (Yellow); Glucose,Urine (UA) Negative (Negative); Ketones,Urine Negative (Negative); Leukocyte Esterase,Urine Negative (Negative); Nitrate,Urine Negative (Negative); PH,Urine 5.5 (5.0-8.5); Protein,Urine Negative (Negative); Specific Gravity, Urine 1.025 (1.005-1.030); Urobilinogen,Urine 0.2 EU/dl (0.2)
[2021-07-26 14:46] LABS: Bacteria,Urine 4+ /lpf
== END ==
PROVIDERS: Visit Provider Family Medicine
DX: R53.82 Chronic fatigue, unspecified (principal)
CPT/HCPCS: 81001; 87086

== ENCOUNTER → 2022-05-04 11:30 | Outpatient (CLI) | payer BC, SELFPAY ==
[2022-05-04 20:05] LABS: Anion Gap 14.3 mEq/L (5-15); Blood Urea Nitrogen 17 mg/dl (9-20); Calcium 9.2 mg/dl (8.4-10.2); Carbon Dioxide 26 mmol/L (22.0-30.0); Chloride 101 mmol/L (98-107); Estimated Glomerular Filt Rate 86 ml/min (>60); GFR (African American) 103 ML/MIN (>60); Glucose 199 mg/dl (74-100); Potassium 4.3 mmoL/L (3.5-5.1); Sodium 137 mmol/L (136-145)
[2022-05-04 21:48] LABS: Hemoglobin A1C 11.5 % (4.0-6.0)
== END ==
PROVIDERS: PCP Family Medicine; Visit Provider Family Medicine
DX: Z00.00 Encounter for general adult medical examination without abnormal findings (principal); R73.9 Hyperglycemia, unspecified
CPT/HCPCS: 80048; 83036

== ENCOUNTER → 2022-08-25 07:53 | Outpatient (CLI) | payer BC, SELFPAY ==
[2022-08-25 20:12] LABS: Hemoglobin A1C 9.9 % (4.0-6.0)
== END ==
PROVIDERS: PCP Family Medicine; Visit Provider Family Medicine
DX: E11.9 Type 2 diabetes mellitus without complications (principal); Z79.84 Long term (current) use of oral hypoglycemic drugs
CPT/HCPCS: 83036

== ENCOUNTER → 2022-10-20 06:58 | Outpatient (CLI) | payer BC, SELFPAY ==
[2022-10-20 18:25] LABS: Chloride 102 mmol/L (98-107); Potassium 4.9 mmoL/L (3.5-5.1); Sodium 137 mmol/L (136-145)
[2022-10-20 18:28] LABS: Anion Gap 13.9 mEq/L (5-15); Blood Urea Nitrogen 21 mg/dl (9-20); Carbon Dioxide 26 mmol/L (22.0-30.0); Estimated Glomerular Filt Rate 68 ml/min (>60); GFR (African American) 82 ML/MIN (>60)
[2022-10-20 18:29] LABS: Calcium 9.2 mg/dl (8.4-10.2); Glucose 113 mg/dl (74-100)
[2022-10-20 18:31] LABS: Hemoglobin A1C 7.7 % (4.0-6.0)
== END ==
PROVIDERS: PCP Family Medicine; Visit Provider Family Medicine
DX: E11.9 Type 2 diabetes mellitus without complications (principal); Z79.84 Long term (current) use of oral hypoglycemic drugs
CPT/HCPCS: 80048; 83036

== ENCOUNTER → 2023-01-05 16:39 | Outpatient (CLI) | payer BC, SELFPAY ==
[2023-01-05 16:34] LABS: Creatinine,Urine Random 195 mg/dL (Not Estab.)
[2023-01-05 16:43] LABS: Hemoglobin A1C 6.7 % (4.0-6.0)
== END ==
PROVIDERS: Visit Provider Family Medicine
DX: E11.9 Type 2 diabetes mellitus without complications (principal); Z79.84 Long term (current) use of oral hypoglycemic drugs
CPT/HCPCS: 82043; 82570; 83036

== ENCOUNTER → 2023-05-11 09:16 | Outpatient (CLI) | payer BC, SELFPAY ==
[2023-05-11 16:51] LABS: Basophils % 0.7 % (0.1-2.0); Eosinophils # 0.1 K/mm3 (0.0-0.4); Eosinophils % 1.6 % (0.1-12.0); Hematocrit 46.4 % (42.0-52.0); Hemoglobin 15.8 g/dL (14.1-18.0); Lymphocytes # 2.5 K/mm3 (0.7-4.5); Lymphocytes % 39.2 % (10-50); Mean Corpuscular Hemoglobin 33.5 pg (27.0-31.2); Mean Corpuscular Volume 98.4 fl (80-94); Mean Platelet Volume 9.6 fl (7.4-10.4); Monocytes # 0.4 K/mm3 (0.1-1.0); Monocytes % 6.7 % (1.7-9.3); Neutrophils # 3.4 K/mm3 (1.8-7.8); Neutrophils % 51.8 % (37.0-80.0); Platelet Count 251 K/mm3 (142-424); Red Blood Count 4.72 M/mm3 (4.60-6.20); White Blood Count 6.5 K/mm3 (4.8-10.8)
[2023-05-11 17:12] LABS: Chloride 100 mmol/L (98-107); Sodium 139 mmol/L (136-145)
[2023-05-11 17:15] LABS: Alanine Aminotransferase 40 U/L (12-78); Albumin Level 4.5 g/dl (3.5-5.0); Albumin/Globulin Ratio 1.3 (1.1-1.8); Alkaline Phosphatase 79 U/L (38-126); Aspartate Amino Transferase 61 U/L (17-59); Bilirubin,Total 1.1 mg/dl (0.2-1.3); Blood Urea Nitrogen 21 mg/dl (9-20); Calcium 9.6 mg/dl (8.4-10.2); Carbon Dioxide 32 mmol/L (22.0-30.0); Cholesterol 224 mg/dl (140-200); Estimated Glomerular Filt Rate 61 ml/min (>60); GFR (African American) 74 ML/MIN (>60); Globulin 3.4 g/dL (1.3-3.2); Glucose 128 mg/dl (74-100); Total Protein,Serum 7.9 g/dl (6.3-8.2); Triglycerides 150 mg/dl (30-150); VLDL Cholesterol 30 mg/dL (0-40)
[2023-05-11 17:16] LABS: Chol/HDL Ratio 6.6 (1-3.5); HDL Cholesterol 34 mg/dl (40-60)
[2023-05-11 17:27] LABS: Direct LDL Cholesterol 134.79 mg/dL (100-129)
[2023-05-11 17:46] LABS: Thyroid Stimulating Hormone 2.43 uIU/mL (0.465-4.68)
[2023-05-11 17:51] LABS: Hemoglobin A1C 6.5 % (4.0-6.0)
== END ==
PROVIDERS: PCP Nurse Practitioner Family; Visit Provider Nurse Practitioner Family
DX: E11.9 Type 2 diabetes mellitus without complications (principal); Z79.84 Long term (current) use of oral hypoglycemic drugs
CPT/HCPCS: 80053; 80061; 83036; 84443; 85025

== ENCOUNTER 2023-08-08 17:49 | Outpatient (CLI) | payer BC, SELFPAY ==
[2023-08-08 17:16] LABS: Hemoglobin A1C 6.8 % (4.0-6.0)
== END 2023-08-08 23:59 ==
LOC: LAB.DROPOF 17:49
PROVIDERS: PCP Family Medicine; Visit Provider Family Medicine
DX: E11.9 Type 2 diabetes mellitus without complications (principal); Z79.85 Long-term (current) use of injectable non-insulin antidiabetic drugs
CPT/HCPCS: 83036

== ENCOUNTER 2023-10-26 21:22 | Outpatient (CLI) | payer BC, SELFPAY ==
[2023-10-26 16:53] LABS: Alanine Aminotransferase 30 U/L (12-78); Albumin Level 4.4 g/dl (3.5-5.0); Albumin/Globulin Ratio 1.3 (1.1-1.8); Alkaline Phosphatase 79 U/L (38-126); Anion Gap 9.9 mEq/L (5-15); Aspartate Amino Transferase 37 U/L (17-59); Bilirubin,Total 0.9 mg/dl (0.2-1.3); Blood Urea Nitrogen 14 mg/dl (9-20); Calcium 10.3 mg/dl (8.4-10.2); Carbon Dioxide 32 mmol/L (22.0-30.0); Chloride 103 mmol/L (98-107); Estimated Glomerular Filt Rate 61 ml/min (>60); GFR (African American) 74 ML/MIN (>60); Globulin 3.3 g/dL (1.3-3.2); Glucose 116 mg/dl (74-100); Potassium 4.9 mmoL/L (3.5-5.1); Sodium 140 mmol/L (136-145); Total Protein,Serum 7.7 g/dl (6.3-8.2)
[2023-10-26 17:27] LABS: Hemoglobin A1C 7.1 % (4.0-6.0)
[2023-10-27 12:41] LABS: Chol/HDL Ratio 3.5 (1-3.5); Cholesterol 138 mg/dl (140-200); HDL Cholesterol 40 mg/dl (40-60); Triglycerides 113 mg/dl (30-150); VLDL Cholesterol 23 mg/dL (0-40)
[2023-10-27 12:52] LABS: Direct LDL Cholesterol 79.45 mg/dL (100-129)
== END 2023-10-26 23:59 ==
LOC: LAB.DROPOF 21:23
PROVIDERS: PCP Family Medicine; Visit Provider Family Medicine
DX: E11.9 Type 2 diabetes mellitus without complications (principal); Z79.85 Long-term (current) use of injectable non-insulin antidiabetic drugs
CPT/HCPCS: 80053; 80061; 83036

== ENCOUNTER 2024-02-13 13:26 | Outpatient (CLI) | payer BC, SELFPAY ==
[2024-02-13 17:45] LABS: Hemoglobin A1C 6.2 % (4.0-6.0)
== END 2024-02-13 23:59 | disposition home or self-care (01) ==
LOC: LAB.DROPOF 02-14 13:26
PROVIDERS: PCP Family Medicine; Visit Provider Family Medicine
DX: E11.9 Type 2 diabetes mellitus without complications (principal); Z79.85 Long-term (current) use of injectable non-insulin antidiabetic drugs
CPT/HCPCS: 83036

== ENCOUNTER 2024-05-17 09:30 | Outpatient (CLI) | payer BC, SELFPAY ==
[2024-05-17 16:33] LABS: Basophils # 0.1 K/mm3 (0-0.2); Basophils % 1.2 % (0.1-2.0); Eosinophils # 0.1 K/mm3 (0.0-0.4); Eosinophils % 1.3 % (0.1-12.0); Hematocrit 50.2 % (42.0-52.0); Hemoglobin 16.7 g/dL (14.1-18.0); Lymphocytes # 2.8 K/mm3 (0.7-4.5); Lymphocytes % 38.1 % (10-50); Mean Corpuscular HGB Conc 33.4 g/dL (31.8-35.4); Mean Corpuscular Hemoglobin 31.7 pg (27.0-31.2); Mean Corpuscular Volume 95.1 fl (80-94); Mean Platelet Volume 9.1 fl (7.4-10.4); Monocytes # 0.4 K/mm3 (0.1-1.0); Monocytes % 5.8 % (1.7-9.3); Neutrophils # 3.9 K/mm3 (1.8-7.8); Neutrophils % 53.7 % (37.0-80.0); Platelet Count 243 K/mm3 (142-424); Red Blood Count 5.28 M/mm3 (4.60-6.20); Red Cell Distribution Width 13.6 % (11.5-17.5); White Blood Count 7.3 K/mm3 (4.8-10.8)
[2024-05-17 16:51] LABS: Alanine Aminotransferase 35 U/L (12-78); Albumin/Globulin Ratio 1.4 (1.1-1.8); Alkaline Phosphatase 78 U/L (38-126); Aspartate Amino Transferase 40 U/L (17-59); Bilirubin,Total 1.1 mg/dl (0.2-1.3); Blood Urea Nitrogen 16 mg/dl (9-20); Calcium 9.6 mg/dl (8.4-10.2); Carbon Dioxide 30 mmol/L (22.0-30.0); Chloride 103 mmol/L (98-107); Chol/HDL Ratio 3.1 (1-3.5); Cholesterol 140 mg/dl (140-200); Estimated Glomerular Filt Rate 61 ml/min (>60); GFR (African American) 74 ML/MIN (>60); Globulin 3.6 g/dL (1.3-3.2); Glucose 95 mg/dl (74-100); HDL Cholesterol 45 mg/dl (40-60); Sodium 142 mmol/L (136-145); Total Protein,Serum 8.6 g/dl (6.3-8.2); Triglycerides 119 mg/dl (30-150); VLDL Cholesterol 24 mg/dL (0-40)
[2024-05-17 17:09] LABS: Hemoglobin A1C 6.2 % (4.0-6.0)
[2024-05-17 17:21] LABS: Thyroid Stimulating Hormone 2.69 uIU/mL (0.465-4.68)
== END 2024-05-17 23:59 | disposition home or self-care (01) ==
LOC: LAB.DROPOF 05-20 09:31
PROVIDERS: PCP Family Medicine; Visit Provider Family Medicine
DX: E11.9 Type 2 diabetes mellitus without complications (principal); Z79.85 Long-term (current) use of injectable non-insulin antidiabetic drugs
CPT/HCPCS: 80050; 80053; 80061; 83036; 84443; 85025

== ENCOUNTER 2025-07-14 13:00 | Outpatient (CLI) | payer BC, SELFPAY ==
[2025-07-14 19:31] LABS: Hematocrit 42.4 % (42.0-52.0); Hemoglobin 13.9 g/dL (14.1-18.0); Immature Granulocytes % 0.2 %; Mean Corpuscular HGB Conc 32.8 g/dL (31.8-35.4); Mean Corpuscular Hemoglobin 30.8 pg (27.0-31.2); Mean Corpuscular Volume 94.0 fl (80-94); Nucleated Red Blood Cells % 0 %; Platelet Count 260 K/mm3 (142-424); Red Blood Count 4.51 M/mm3 (4.60-6.20); Red Cell Distribution Width-SD 44.2 fL; White Blood Count 6.3 K/mm3 (4.8-10.8)
[2025-07-14 20:01] LABS: Albumin Level 4.8 g/dl (3.5-5.0); Chloride 102 mmol/L (98-107); Potassium 4.6 mmoL/L (3.5-5.1); Sodium 141 mmol/L (136-145)
[2025-07-14 20:03] LABS: Alanine Aminotransferase 31 U/L (12-78); Aspartate Amino Transferase 38 U/L (17-59); Blood Urea Nitrogen 17 mg/dl (9-20); Creatinine,Serum 1.40 mg/dl (0.66-1.25); Estimated Glomerular Filt Rate 51 ml/min (>60); GFR (African American) 62 ML/MIN (>60)
[2025-07-14 20:04] LABS: Albumin/Globulin Ratio 1.7 (1.1-1.8); Alkaline Phosphatase 69 U/L (38-126); Anion Gap 15.6 mEq/L (5-15); Bilirubin,Total 0.8 mg/dl (0.2-1.3); Calcium 9.5 mg/dl (8.4-10.2); Carbon Dioxide 28 mmol/L (22.0-30.0); Cholesterol 114 mg/dl (140-200); Globulin 2.9 g/dL (1.3-3.2); Glucose 95 mg/dl (74-100); HDL Cholesterol 41 mg/dl (40-60); Total Protein,Serum 7.7 g/dl (6.3-8.2); Triglycerides 103 mg/dl (30-150)
[2025-07-14 20:52] LABS: Hepatitis C Ab Qual. W/ RFX NEGATIVE (Negative)
--- OUTSIDE RECORDS SUMMARY | 2025-07-15 12:07 | XMS_ITS | Clinical Summary ---
[facility] Address [address] [place] [address] Care Team Providers Care Conference Planner Name Role Phone Provider, No Known Primary Care Provider Unavail able Allergies No known active allergies Medications No known medications Active Problems No known active problems Family History Medical History Relation Name Comments Cancer Father Cancer Mother Relation Name Status Comments Father Mother Social History Tobacco Use Types Packs/Day Years Used Date Smoking Tobacco: Never Abuse Screen Answer Date Recorded Unsafe at Home or Work/School Not on file Feels Threatened by Someone? Not on file 03/2023 Does Anyone Keep You from Co ntacting Others or Doint Things Outside the Home? Not on file 05/01/2023 Physical Sign of Abuse Present Not on file 1 Housing Stability Answer Date Recorded Current Living Arrangements Not on file 03/2023 Potentially Unsafe Housing Conditions Not on anum e 05/01/2023 Family and Community Support Answer Mariano e Recorded Help with Day-to-Day Activities Not on file 05/01/2023 Lonely or Isolated Not on file 05/01/2023 Employment Answer Date Recorded Do you want help finding or keeping work or a katie b? Not on file 05/01/2023 Disabilities Answer Date Recorded Concentrating, Remembering, or Making Decisions Difficulty Not on file 05/01/2023 Doing Errands Independently Difficulty Not on fi le 05/01/2023 Education Answer Date Recorded Help with school or training? Not on file Preferred Language Not on file 05/01/2023 Sex and Gender Information Value Date Recorded Sex Assigned at Not on file Legal Sex Male 1:11 PM EDT Gender Identity Not on file Sexual Orientation Not on file Last Filed Vital Signs Vital Sign Reading Time Taken Comments Blood Pressure 122/92 07/22/2019 2:45 PM EST Pulse 93 07/22/2019 2:45 PM EST Temperature 36.6 C (97.8 F) 07/22/2019 2:45 PM EST Respiratory Rate 15 07/22/2019 2:45 PM EST Oxygen Saturation 96% 07/22/2019 2:45 PM EST Inhaled Oxygen Concentration - - Weight 111 kg (244 lb 6.4 oz) 07/22/2019 2:45 PM EST Height 170.2 cm (5' 7 ) 07/22/2019 2:45 PM EST Body Mass Index 38.28 07/22/2019 2:45 PM EST Plan of Treatment Health Maintenance Due Date Last Done Comments TDAP/TD VACCINES (1 - Tdap) 02/12/1979 COLOGUARD 02/12/2005 COLON CANCER SCREENING 5 YEAR SIGMOIDOSCOPY 02/12/2005 COLONOSCOPY 02/12/2005 COLORECTAL CANCER SCREENING 02/12/2005 CT COLONOGRAPHY 02/12/2005 FECAL OCCULT BLOOD TEST 02/12/2005 FIT Testing (1 year) 02/12/2005 Pneumococcal Vaccine 50+ (1 of 1 - PCV) 02/12/2010 ZOSTER VACCINE (1 of 2) 02/12/2010 ANNUAL PHYSICAL 07/22/2019 HEPATITIS C SCREENING 07/22/2019 AAA SCREEN ONCE 02/12/2025 INFLUENZA VACCINE 02/21/2025 COVID-19 Vaccine ( season) 2025 Insurance EMPLOYEE Care Teams Conference Planner Relationship Specialty Start Date End Date Provider, No Known [facility] [place] [address] PCP - General 07/22/19
[2025-07-16 07:14] LABS: Hepatitis B Surface Antigen Negative (Negative)
== END 2025-07-14 23:59 | disposition home or self-care (01) ==
LOC: LAB.DROPOF 07-15 12:05
PROVIDERS: PCP Family Medicine; Visit Provider Family Medicine
DX: E11.9 Type 2 diabetes mellitus without complications (principal); Z11.59 Encounter for screening for other viral diseases; Z11.4 Encounter for screening for human immunodeficiency virus [HIV]
CPT/HCPCS: 80053; 80061; 85025; 86803; 87340; 87389